=== PATIENT | male | born 1990 | race Caucasian/White ===

== ENCOUNTER 2021-03-07 12:09 | Outpatient (CLI) | payer OTHER, SELFPAY ==
[2021-03-07 12:29] LABS: Hematocrit 38.4 % (40.0-54.0); Hemoglobin 13.2 g/dL (14.0-18.0); Mean Corpuscular HGB Conc 34.4 g/dL (32.0-36.0); Mean Corpuscular Hemoglobin 30.1 pg (27.0-31.0); Mean Corpuscular Volume 87.5 fL (78.0-102.0); Mean Platelet Volume 9.4 fl (8.7-11.0); Platelet Count Result 248 K/mm3 (150-420); Red Blood Count 4.39 M/mm3 (4.70-6.10); Red Cell Distribution Width 11.8 % (11.6-14.4); White Blood Count 4.1 K/mm3 (4.8-10.8)
[2021-03-07 13:41] LABS: CRP < 0.2 mg/dL (0.0-0.9)
[2021-03-07 13:48] LABS: Erythrocyte Sedimentation Rate 13 mm/hr (0-15)
== END 2021-03-07 12:10 | disposition home or self-care (01) ==
LOC: CHSLAB 12:14
PROVIDERS: PCP Family Medicine
DX: S82.201B Unspecified fracture of shaft of right tibia, initial encounter for open fracture type I or II (principal); S82.831B Other fracture of upper and lower end of right fibula, initial encounter for open fracture type I or II; M79.661 Pain in right lower leg
CPT/HCPCS: 36415; 85027; 85652; 86140